=== PATIENT | male | born 1965 | race Two or more races ===

== ENCOUNTER 2022-10-04 09:30 | Emergency (ER) | payer MEDICAID, OTHER ==
[2022-10-04] MEDS ORDERED: Orphenadrine 60 MG/2 ML Inj IM ONE (09:46)
[2022-10-04] MEDS ORDERED: Dexamethasone 4 MG/ML SDV IM ONE (09:49)
[2022-10-04] MEDS ORDERED: Take Home: Cyclobenzaprine 10 MG Tab, 4 Tab Pack PO ONE (09:50)
[2022-10-04] MEDS ORDERED: Take Home: Acetaminophen/HYDROcodone 325-5 MG, 5 Tab Pack PO ONE (09:50)
== END 2022-10-04 10:20 | disposition home or self-care (01) ==
LOC: DL.ED 09:30
DX: S39.012A Strain of muscle, fascia and tendon of lower back, initial encounter (principal); M54.42 Lumbago with sciatica, left side; M62.830 Muscle spasm of back; I10 Essential (primary) hypertension; X50.0XXA Overexertion from strenuous movement or load, initial encounter; Y99.0 Civilian activity done for income or pay
CPT/HCPCS: 96372; 99283; A9270; J1100; J2360